=== PATIENT | male | born 1960 | race Caucasian/White ===

== ENCOUNTER → 2017-09-06 | Outpatient (CLI) | payer SELFPAY | LOC: MHCPAIN 09:06 | DX: G89.29 Other chronic pain (principal); M47.27 Other spondylosis with radiculopathy, lumbosacral region; M53.3 Sacrococcygeal disorders, not elsewhere classified | CPT/HCPCS: G0463 ==

== ENCOUNTER 2018-06-01 12:10 | Emergency (ER) | payer OTHER ==
[~2018-06-01] VITALS: Ht 172.7 cm; Wt 76.4 kg
[2018-06-01 12:13] VITALS: TEMP 98.2
[2018-06-01 12:43] LABS: BASO % 0.4 % (0.0-2.0); EOS # 0.1 (0.0-0.7); EOS % 2.1 % (0-4.0); GRAN # 3.1 (1.4-6.5); GRAN % 59.6 % (42.2-75.2); HEMATOCRIT 44.8 % (42.0-52.0); HEMOGLOBIN 15.2 g/dl (13.5-18.0); LYMPH # 1.4 (1.2-3.4); MEAN CELL VOLUME 94 fl (80.0-100.0); MEAN CORPUSCULAR HEMOGLOBIN 32 pg (27.0-31.0); MEAN CORPUSCULAR HGB CONC 34 g/dl (33.0-37.0); MEAN PLATELET VOLUME 9.7 fl (7.4-10.4); MONO # 0.6 (0.1-0.6); MONO % 10.7 % (1.7-9.3); PLATELET COUNT 249 K/mm3 (130-400); RED BLOOD COUNT 4.78 M/mm3 (4.20-5.60); REDCELL DISTRIBUTION WIDTH-CV 12.7 % (11.5-14.5)
[2018-06-01 12:53] LABS: ALANINE AMINOTRANSFERASE 33 U/L (21-72); ALBUMIN 4.3 gm/dL (3.5-5.0); ALKALINE PHOSPHATASE 49 U/L (50-136); ANION GAP 10 mmol/L (7-16); AST,SGOT 45 U/L (15-37); BILIRUBIN,TOTAL 0.8 mg/dL (0.0-1.0); BLOOD UREA NITROGEN 19 mg/dL (9-20); CARBON DIOXIDE 26 mmol/L (22-30); CHLORIDE 103 mmol/L (98-107); CREATININE, serum 0.99 mg/dL (0.66-1.25); GLUCOSE 91 mg/dL (74-106); POTASSIUM 4.4 mmol/L (3.4-5.0); SODIUM 139 mmol/L (137-145); TOTAL PROTEIN 7.4 gm/dL (6.4-8.2)
[2018-06-01 12:54] LABS: ALCOHOL(ethanol),MEDICAL < 10 mg/dL
[2018-06-01 13:06] LABS: TROPONIN-I < 0.012 ng/mL (0.000-0.034)
[2018-06-01] MEDS ORDERED: NEURONTIN300 MG/CAP PO (15:00)
[2018-06-01] MEDS ORDERED: HCTZ 25MG TAB25 MG PO (15:05)
[2018-06-01 16:02] VITALS: BP 160/112; PULSE 65
== END 2018-06-01 16:00 | disposition home or self-care (01) ==
LOC: COL.ER 12:10
PROVIDERS: Emergency Medicine
DX: I10 Essential (primary) hypertension (principal); F10.10 Alcohol abuse, uncomplicated
CPT/HCPCS: J2060; J3411; J3475; J7030

== ENCOUNTER → 2018-06-15 | Outpatient (CLI) | payer OTHER ==
[~2018-06-15] MED LIST: HCTZ 25MG TAB25 MG PO; NEURONTIN300 MG/CAP PO
== END ==
LOC: COL.CARD 06-14 07:00
DX: R55 Syncope and collapse (principal)

== ENCOUNTER → 2018-11-02 | Outpatient (CLI) | payer OTHER | LOC: COL.RAD 07:30 | DX: M43.17 Spondylolisthesis, lumbosacral region (principal); M48.061 Spinal stenosis, lumbar region without neurogenic claudication; M51.36 Other intervertebral disc degeneration, lumbar region; M51.26 Other intervertebral disc displacement, lumbar region ==

== ENCOUNTER → 2018-12-25 | Outpatient (CLI) | payer OTHER | LOC: COL.RAD 11:06 | DX: Z01.818 Encounter for other preprocedural examination (principal); M54.9 Dorsalgia, unspecified; Z86.79 Personal history of other diseases of the circulatory system ==

== ENCOUNTER → 2018-12-25 | Outpatient (CLI) | payer OTHER ==
[2018-12-25 17:04] LABS: INR 0.9 (0.8-3.0); PROTHROMBIN TIME 10.7 SECONDS (9.7-12.8)
[2018-12-25 17:07] LABS: CREATININE, serum 1.05 mg/dL (0.66-1.25); POTASSIUM 4.1 mmol/L (3.4-5.0)
[2018-12-25 17:12] LABS: BASO # 0.1 (0.0-0.2); EOS # 0.2 (0.0-0.7); EOS % 3.2 % (0-4.0); GRAN # 2.6 (1.4-6.5); GRAN % 52.4 % (42.2-75.2); HEMATOCRIT 46.7 % (42.0-52.0); HEMOGLOBIN 15.9 g/dl (13.5-18.0); LYMPH # 1.8 (1.2-3.4); LYMPH % 35.6 % (20.0-51.0); MEAN CELL VOLUME 95 fl (80.0-100.0); MEAN CORPUSCULAR HEMOGLOBIN 32 pg (27.0-31.0); MEAN CORPUSCULAR HGB CONC 34 g/dl (33.0-37.0); MEAN PLATELET VOLUME 10.1 fl (7.4-10.4); MONO # 0.4 (0.1-0.6); MONO % 7.6 % (1.7-9.3); PLATELET COUNT 332 K/mm3 (130-400); RED BLOOD COUNT 4.91 M/mm3 (4.20-5.60); REDCELL DISTRIBUTION WIDTH-CV 13.7 % (11.5-14.5)
== END ==
LOC: ZCOL.LAB 16:42
PROVIDERS: Family Medicine
DX: F10.10 Alcohol abuse, uncomplicated (principal)

== ENCOUNTER → 2018-12-27 | Outpatient (CLI) | payer OTHER ==
[2018-12-27 11:56] LABS: COLLECTION METHOD CLEAN CATCH
[2018-12-27 12:10] LABS: AMORPHOUS CRYSTAL Present /uL; PH 5 (5-8); SQUAMOUS EPITHELIAL None Seen /hpf; URINE APPEARANCE Turbid; URINE BACTERIA None Seen /hpf; URINE BILIRUBIN Negative (NEGATIVE); URINE BLOOD Negative (NEGATIVE); URINE COLOR Amber; URINE GLUCOSE Negative (NEGATIVE); URINE KETONE Negative (NEGATIVE); URINE LEUKOCYTE ESTERASE Negative (NEGATIVE); URINE NITRATE Negative (NEGATIVE); URINE PROTEIN(semi-quant) Negative (NEGATIVE); URINE RBC 0-2 /hpf
== END ==
LOC: ZCOL.LAB 11:28
PROVIDERS: Family Medicine
DX: Z01.812 Encounter for preprocedural laboratory examination (principal); F10.10 Alcohol abuse, uncomplicated

== ENCOUNTER → 2019-01-04 | Outpatient (CLI) | payer OTHER ==
[~2019-01-04] VITALS: Ht 172.7 cm; Wt 76.0 kg
[~2019-01-04] MED LIST changes: +HCTZ12.5TAB PO
[2019-01-04 06:46] VITALS: BP 140/111; PULSE 87
--- NOTE | 2019-01-04 06:59 | NUR ---
dr snyder was called as the pt bp was 147/104. dr salas states go ahead with procedure
[2019-01-04 07:54] VITALS: BP 153/108; PULSE 77
[2019-01-04 07:58] VITALS: BP 138/85; PULSE 101
[2019-01-04 07:59] VITALS: BP 136/88; PULSE 89
[2019-01-04 08:00] VITALS: BP 144/98; PULSE 89
== END ==
LOC: COL.CARD 06:30
DX: Z01.810 Encounter for preprocedural cardiovascular examination (principal); R07.9 Chest pain, unspecified
CPT/HCPCS: A9500; J2785

== ENCOUNTER 2019-06-19 09:15 | Outpatient (RCR) | payer OTHER | END 2019-06-24 13:20 | disposition home or self-care (01) | LOC: WSC 09:15 | DX: M43.17 Spondylolisthesis, lumbosacral region (principal); M54.16 Radiculopathy, lumbar region; Z98.1 Arthrodesis status ==

== ENCOUNTER → 2022-06-27 | Outpatient (CLI) | payer OTHER | LOC: COL.RAD 09:13 | DX: M51.36 Other intervertebral disc degeneration, lumbar region (principal); M41.9 Scoliosis, unspecified; M06.9 Rheumatoid arthritis, unspecified; J44.9 Chronic obstructive pulmonary disease, unspecified; M48.061 Spinal stenosis, lumbar region without neurogenic claudication ==

== ENCOUNTER 2024-05-08 17:45 | Inpatient (IN) | payer MEDICAID ==
[~2024-05-08] VITALS: Ht 172.7 cm; Wt 81.2 kg
[~2024-05-08 17:45] MED LIST changes: +DUO-KAPS1 CAP PO; +FOLIC ACID 11 MG/TA1 PO; +NATURE'S BLEND100 M2 PO; +PRILOTC PO; +PRINIVIL20 MG PO
[2024-05-08 19:54] VITALS: BP 128/89; PULSE 88; TEMP 98.1
[2024-05-08] MEDS ORDERED: Pantoprazole 40 MG in NS 10 ML IV SCH (20:50)
[2024-05-08] MEDS ORDERED: diazePAM 10 MG TAB PO SCH (21:00)
[2024-05-08] MEDS ORDERED: LORazepam 2 MG/ML 1 ML VIAL IV PRN (21:00)
[2024-05-08] MEDS ORDERED: LORazepam 1 MG TAB PO PRN (21:00)
[2024-05-08] MEDS ORDERED: NS 1,000 ML IV SCH (21:00)
[2024-05-08] MEDS ORDERED: LORazepam 2 MG/ML 1 ML VIAL IM PRN (21:00)
[2024-05-08] MEDS ORDERED: Mag/Al Hydrox/Simeth Susp 30 ML CUP PO PRN (21:00)
[2024-05-08] MEDS ORDERED: Thiamine 100 MG TAB PO SCH (21:00)
[2024-05-08] MEDS ORDERED: PROTONIX 40MG T40 MG PO (21:17)
[2024-05-08] MEDS ORDERED: BREO IH (21:18)
[2024-05-08] MEDS ORDERED: LIPITOR20 MG PO (21:19)
[2024-05-08] MEDS ORDERED: NORVASC 10MG10 MG PO (21:20)
[2024-05-08] MEDS ORDERED: ELIQUIS 5MG PO (21:21)
[2024-05-08] MEDS ORDERED: PROAIR HFA0.09 MG/AC (21:22)
[2024-05-08 21:44] LABS: COLLECTION METHOD CLEAN CATCH
[2024-05-08] MEDS ORDERED: ALBUTEROL0.83 MG/ML IH (21:55)
[2024-05-08] MEDS ORDERED: PROAIR HFA0.09 MG/AC IH (21:55)
[2024-05-08] MEDS ORDERED: Albuterol 0.083% Neb Soln 2.5 MG/3 ML UD IH PRN (22:00)
[2024-05-08 22:18] LABS: URINE APPEARANCE CLEAR (CLEAR/HAZY); URINE BLOOD NEGATIVE (NEGATIVE); URINE COLOR YELLOW (YELLOW); URINE GLUCOSE NEGATIVE (NEGATIVE); URINE KETONE 1+ (NEGATIVE); URINE NITRATE NEGATIVE (NEGATIVE); URINE PROTEIN(semi-quant) NEGATIVE (NEGATIVE)
[2024-05-08] MEDS ORDERED: Apixaban 5 MG TABLET PO SCH (22:30)
[2024-05-08 22:35] LABS: TRICYCLIC ANTIDEPRESS URINE NEGATIVE (NEGATIVE)
[2024-05-08 22:43] LABS: INR 1.2 (0.8-3.0); PROTHROMBIN TIME 13.3 SECONDS (9.7-12.8)
[2024-05-08 22:46] LABS: PARTIAL THROMBOPLASTIN TIME 30.8 SECONDS (26.0-37.0)
[2024-05-08 22:57] LABS: CALCIUM 8.2 mg/dL (8.4-10.2); CREATININE, serum 0.88 mg/dL (0.72-1.25)
[2024-05-08 22:59] LABS: POTASSIUM 2.8 mEq/L (3.5-4.5)
[2024-05-08] MEDS ORDERED: Potassium Bicarbonate/Citrate 20 MEQ Effervescent TAB PO SCH (23:15)
[2024-05-08] MEDS ORDERED: *Potassium Replacement Protocol MC SCH (23:15)
[2024-05-08 23:31] VITALS: BP 133/80; PULSE 94; TEMP 98.8
[2024-05-09] VITALS (16 sets, daily range): BP systolic 101–133; BP diastolic 68–87; PULSE 76–90; TEMP 97.9–98.9
--- NOTE | 2024-05-09 00:10 | NUR ---
pt arrived from [facility] via EMS around 1999, alert and oriented x4. denies chest pain and reports exertional shortness of breath. pt visual shaky with tremors, reports "has been this way since I was a kid". 2229- Karolina, [employer] notified of critical potassium, 2299- Karolina notified of Mg level per request, new orders placed for potassium and mg, initiated. no remarkable skin findings at this time. IV in LAC started by [facility], patent, site CDI. pt has no further needs, questions, or concerns at this time. fall and seizure precautions in place, call light within reach. will continue to monitor.
[2024-05-09] MEDS ORDERED: traMADol 50 MG TAB PO PRN (02:00)
[2024-05-09] MEDS ORDERED: Formoterol 20 MCG,Budesonide 0.5 MG IH SCH (07:00)
[2024-05-09 07:07] LABS: BASO % 0.7 % (0.0-2.0); EOS # 0.1 K/mm3 (0.0-0.7); EOS % 2.4 % (0.0-4.0); GRAN % 46.8 % (42.2-75.2); HEMOGLOBIN 12.4 g/dl (13.5-18.0); LYMPH # 1.6 K/mm3 (1.2-3.4); LYMPH % 37.4 % (20.0-51.0); MEAN CELL VOLUME 96 fl (80.0-100.0); MEAN CORPUSCULAR HEMOGLOBIN 33 pg (27-31); MEAN CORPUSCULAR HGB CONC 35 g/dl (33.0-37.0); MEAN PLATELET VOLUME 10.6 fl (7.4-10.4); MONO # 0.5 K/mm3 (0.1-0.6); MONO % 12.2 % (1.7-9.3); PLATELET COUNT 160 K/mm3 (130-400); RED BLOOD COUNT 3.74 M/mm3 (4.20-5.60); REDCELL DISTRIBUTION WIDTH-CV 14.7 % (11.5-14.5)
[2024-05-09 07:27] LABS: HEMATOCRIT 35.7 % (42.0-52.0)
[2024-05-09 07:38] LABS: ALBUMIN 2.6 g/dL (3.4-4.8); BILIRUBIN,TOTAL 1.6 mg/dL (0.2-1.2); CALCIUM 8.4 mg/dL (8.4-10.2); CREATININE, serum 0.88 mg/dL (0.72-1.25); MAGNESIUM 2.1 mg/dL (1.6-2.6); POTASSIUM 3.5 mEq/L (3.5-4.5); TOTAL PROTEIN 5.6 g/dl (6.2-8.1)
[2024-05-09] MEDS ORDERED: Multivitamin TAB PO SCH (08:00)
--- NOTE | 2024-05-09 08:00 | NUR ---
Bedside report received from FARZANEH Cruz. Pt awake in bed with no complaints. Call light within reach and fall precautions in place.
[2024-05-09] MEDS ORDERED: Potassium Bicarbonate/Citrate 20 MEQ Effervescent TAB PO SCH (08:15)
[2024-05-09] MEDS ORDERED: Lidocaine 4% Topical Patch TP SCH (09:00)
[2024-05-09] MEDS ORDERED: Folic Acid 1 MG TAB PO SCH (09:00)
[2024-05-09] MEDS ORDERED: amLODIPine 10 MG TAB PO SCH (09:00)
[2024-05-09] MEDS ORDERED: Apixaban 5 MG TABLET PO SCH (09:00)
--- NOTE | 2024-05-09 09:03 | NUR ---
Pt resting in bed watching TV. Shift assessment completed. Pt A&O x4. VSS. CIWA protocol in place with last score 1. Pt denies pain/discomfort rating 0/10. IVF infusing into Lt AC with no complica
--- NOTE | 2024-05-09 09:21 | NUR ---
Initial visit; Patient thanked Paper Products Printer for stopping and said he could use [employer] Printer keeping him in her prayers. [employer] Printer will follow up, Nurse with patient.
[2024-05-09] MEDS ORDERED: FOLIC ACID 11 MG/TA1 PO (11:15)
[2024-05-09] MEDS ORDERED: NATURE'S BLEND100 M2 PO (11:16)
[2024-05-09] MEDS ORDERED: COMPLETE MULTI1 TAB PO (11:17)
--- NOTE | 2024-05-09 16:06 | NUR ---
Access Representative and Vera Barney met with patient to discuss discharge planning. Patient lives alone near [place], [place] and Dr. Li in [place] is his primary care physician, although he stated he normally sees her nurse practitioner. Patient gets his medications from [facility] and was having difficulties affording medications until he was approved for Medicaid. Patient reported he has a cane and walker available at home. Patient reported he has had some difficulty with ADLS and remarked it was difficult to sit at the dining room table to go through all his mail due to pain. SW addressed patient's alcohol use and patient stated he wants to stop drinking. 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 Patient advised he went to the liquor store so he could sleep. Patient drinks fireball whiskey on a daily basis. Patient was not interested in going to an inpatient treatment center and just plans to detox here. SW provided a resource guide and discussed outpatient counseling. Patient will review the resource guide and also stated he can talk about this with his PCP. Patient stated he plans to return home at time of discharge. Patient expressed interest in completing [facility] and wanted to designate his brother, Ricky (ph#[phone]) and sister in law, Ashley (ph#[phone]). TEZ and Vera Barney provided witness signature then Vera provided original and copies to patient. Copy also placed in chart. Discharge Plan: Home
--- NOTE | 2024-05-09 20:00 | NUR ---
Pt sitting up in bed upon this nurse's entry to room. A&Ox4. Pleasant demeanor noted. VS obtained and WNL. Scheduled HS PO medications administered. CIWA score 4. No symptoms of detox noted or reported other than tremors to bilateral hands. Pt reports he has had tremors since 5 y.o, but that they are not usually this pronounced. Shift assessment completed. RR even and unlabored. Pt does experience SOA w/ exertion, but is able to recover w/ rest. LSCTA. Pt denies cough. HRRR. Abd is rounded and firm. Bowel sounds x4 quadrants. No TTP. No edema noted. PIV to LAC remains saline locked. Pt denies any pain. No needs or concerns voiced. Call light in reach. Care ongoing.
[2024-05-10] VITALS (9 sets, daily range): BP systolic 104–132; BP diastolic 67–90; PULSE 77–98; TEMP 97.6–98.4
--- NOTE | 2024-05-10 07:25 | NUR ---
Bedside report received from FARZANEH Chavez. Pt resting in bed with no complaints. Call light within reach and fall precautions in place.
[2024-05-10 07:42] LABS: ALBUMIN 3.1 g/dL (3.4-4.8); BILIRUBIN,TOTAL 1.3 mg/dL (0.2-1.2); CALCIUM 8.1 mg/dL (8.4-10.2); CREATININE, serum 0.85 mg/dL (0.72-1.25); POTASSIUM 4.1 mEq/L (3.5-4.5); TOTAL PROTEIN 6.6 g/dl (6.2-8.1)
--- NOTE | 2024-05-10 08:35 | NUR ---
Pt awake in bed eating breakfast. Shift assessment completed. Pt is A&O x4. VSS. CIWA score 4. Hospitalist at bedside doing rounds. IVF infusing into LAC with no complications. Pt denies pain at this time rating 0/10. Pt ambulates to bathroom and back to bed with stand by assist with no complications. Pt has no request at this time. Call light within reach and fall precautions in place.
--- NOTE | 2024-05-10 11:25 | NUR ---
Discharge paperwork provided to pt and pt verbalized understanding of discharge instructions. Pt is awaiting family to pick him up from facility to take him home.
--- NOTE | 2024-05-10 12:15 | NUR ---
THIS RN REMOVED PATIENT IV. FELIPA REFUSING TO HAVE CHAIR ALARM ON ANY LONGER AND DOES NOT WANT TO WAIT FOR HIS RIDE WHILE IN BED. PATIENT CLEARED FOR DISCHARGE HOME, FALL PRECUTIONS REMOVED. PATINET AWAKE AND ALERT SITTING UP ON BENCH, ALL LIGHT WTIHIN REACH. PATIENT AWAITING HIS RIDE.
--- NOTE | 2024-05-10 17:32 | NUR ---
Proofer Apprentice met with patient who will be discharged home today. Patient stated he has a friend that is going to take him to his truck in [place]. Patient advised he plans to follow up with his PCP before "making any big decisions" in regards to inpatient/outpatient alcohol treatment.
== END 2024-05-10 13:54 | disposition home or self-care (01) | DRG 897 ==
LOC: MEDICAL 17:45
PROVIDERS: Nurse Practitioner Family; ADMIT Internal Medicine
DX: F10.129 Alcohol abuse with intoxication, unspecified (principal); N17.9 Acute kidney failure, unspecified; E87.1 Hypo-osmolality and hyponatremia; E87.20 Acidosis, unspecified; J44.9 Chronic obstructive pulmonary disease, unspecified; I10 Essential (primary) hypertension; K76.0 Fatty (change of) liver, not elsewhere classified; G89.29 Other chronic pain; M54.2 Cervicalgia; M54.9 Dorsalgia, unspecified; H54.7 Unspecified visual loss; Y90.0 Blood alcohol level of less than 20 mg/100 ml; E78.5 Hyperlipidemia, unspecified; F32.A Depression, unspecified; F12.10 Cannabis abuse, uncomplicated; E87.6 Hypokalemia; E83.42 Hypomagnesemia; R74.01 Elevation of levels of liver transaminase levels; K20.90 Esophagitis, unspecified without bleeding; K27.9 Peptic ulcer, site unspecified, unspecified as acute or chronic, without hemorrhage or perforation; Z86.711 Personal history of pulmonary embolism; I25.2 Old myocardial infarction; Z86.718 Personal history of other venous thrombosis and embolism; Z86.73 Personal history of transient ischemic attack (TIA), and cerebral infarction without residual deficits; Z79.01 Long term (current) use of anticoagulants; Z79.899 Other long term (current) drug therapy; Z88.8 Allergy status to other drugs, medicaments and biological substances; Z98.1 Arthrodesis status; Z23 Encounter for immunization
CPT/HCPCS: C9113; J3475; J7030